=== PATIENT | male | born 1990 | race Caucasian/White ===

== ENCOUNTER 2023-02-24 22:11 | Emergency (ER) | payer MEDICAID ==
[~2023-02-24] VITALS: Ht 190.5 cm; Wt 77.1 kg
[~2023-02-24 22:11] MED LIST: HYDROXYZINE PAM50 MG PO; MOTRIN800 MG PO; NKHM; ONDANSETRON HYDR4 M1 PO; SINEMET 25-100M1 TAB PO
== END 2023-02-25 00:03 | disposition home or self-care (01) ==
LOC: ED 22:11
DX: F41.9 Anxiety disorder, unspecified (principal); Z91.030 Bee allergy status; Z88.8 Allergy status to other drugs, medicaments and biological substances; Z98.890 Other specified postprocedural states